=== PATIENT | male | born 1970 | race Caucasian/White ===

== ENCOUNTER 2017-01-10 19:17 | Emergency (ER) | payer OTHER ==
[~2017-01-10] VITALS: Ht 182.8 cm; Wt 122.5 kg
[~2017-01-10 19:17] MED LIST: ATARAX,VISTARIL50 MG PO; ATIVAN1 MG PO; ATOXIMETIN-B1 CAP PO; BACTRIM DS 8001 TAB PO; CITALOPRAM40 MG PO; CLINDAMYCIN HC300 MG PO; CYCLOBENZAPRINE5 M3 PO; DILANTIN100 MG PO; KEFLEX500 M1 PO; KENALOG 0.1%80 GM PO; KEPPRA1000 MG PO; LAMICTAL200 MG PO; LAMICTAL25 MG PO; LEVOFLOXACIN500 MG PO; LYRICA25 MG PO; MOTRIN800 MG PO; Motrin,Rufen800 MG PO; NAPROSYN500 MG PO; NKHM; NORCO 325 MG-51 TAB PO; PHENYTOIN100 MG PO; PREDNICOT20 MG PO; TRAZODONE100 MG PO; ULTRAM50 MG PO; VICODIN 5/500 505 MG PO; ZIPRASIDONE HCL40 MG PO
[2017-01-10] MEDS ORDERED: ZIPRASIDONE HCL20 M1 PO (19:48)
[2017-01-10] MEDS ORDERED: CITALOPRAM HYDR20 MG PO (19:49)
[2017-01-10] MEDS ORDERED: LAMOTRIGINE200 MG PO (19:49)
[2017-01-10 20:30] LABS: BASO # 0.1 10*3/uL (0.0-0.1); BASO % 0.5 % (0.0-1.0); EOS # 0.2 10*3/uL (0.0-0.4); EOS % 2.1 % (1.0-4.0); HEMATOCRIT 47.4 % (42.0-52.0); HEMOGLOBIN 16.3 g/dl (14.0-18.0); IG # 0.1 10*3/uL (0.0-0.1); LYMPH # 2.7 10*3/uL (1.3-4.4); MEAN CELL VOLUME 89.6 fl (80.0-94.0); MEAN CORPUSCULAR HGB 30.8 pg (27.0-31.0); MEAN CORPUSCULAR HGB CONC 34.4 g/dl (33.0-37.0); MEAN PLATELET VOLUME 11.2 fl (9.6-12.3); MONO # 0.6 10*3/uL (0.1-1.0); MONO % 6.3 % (3.0-9.0); NEUT # 5.9 10*3/uL (2.3-7.9); NEUT % 62.6 % (47.0-73.0); PLATELET COUNT AUTOMATED 189 10*3/uL (130-400); RED BLOOD COUNT 5.29 10*6/uL (4.50-5.90); RED CELL DISTRI WIDTH 12.9 % (0-14.5); WHITE BLOOD COUNT 9.5 10*3/uL (4.8-10.8)
[2017-01-10 20:49] LABS: ALBUMIN 4.1 gm/dl (3.1-4.5); ALKALINE PHOSPHATASE 108 U/L (45-117); BILIRUBIN, TOTAL 0.3 mg/dl (0.2-1.0); BUN 13 mg/dl (7-24); CARBON DIOXIDE 23 mmol/L (21-32); CHLORIDE 104 mmol/L (98-107); EST GLOM FILT AFRICAN AMERICAN > 60 ml/min; GLUCOSE 98 mg/dL (65-99); MAGNESIUM 2.3 mg/dL (1.5-2.1); POTASSIUM 4.1 mmol/L (3.5-5.1); SGOT/AST 20 IU/L (3-35); SGPT/ALT 36 U/L (12-78); SODIUM 140 mmol/L (136-145); TOTAL PROTEIN 7.4 gm/dL (6.4-8.2)
[2017-01-10 21:04] LABS: TROPONIN I < 0.015 ng/ml (<0.045)
[2017-01-10] MEDS ORDERED: PRINIVIL10 MG PO (21:26)
[2017-01-10] MEDS ORDERED: HYDROCHLOROTH12.5 M2 PO (21:26)
[2017-01-10 21:29] VITALS: BP 146/84
== END 2017-01-10 21:29 | disposition home or self-care (01) ==
LOC: ED 19:17
PROVIDERS: Emergency Medicine Emergency Medical Services
DX: I10 Essential (primary) hypertension (principal); F17.200 Nicotine dependence, unspecified, uncomplicated; Z88.0 Allergy status to penicillin; F32.9 Major depressive disorder, single episode, unspecified

== ENCOUNTER → 2017-06-08 | Outpatient (CLI) | payer BC ==
[~2017-06-08] MED LIST changes: +CITALOPRAM HYDR20 MG PO; +HYDROCHLOROTH12.5 M2 PO; +LAMOTRIGINE200 MG PO; +PRINIVIL10 MG PO; +ZIPRASIDONE HCL20 M1 PO
[2017-06-08 13:56] LABS: BASO # 0.1 10*3/uL (0.0-0.1); BASO % 0.7 % (0.0-1.0); EOS # 0.1 10*3/uL (0.0-0.4); EOS % 1.7 % (1.0-4.0); HEMOGLOBIN 15.5 g/dl (14.0-18.0); LYMPH # 1.9 10*3/uL (1.3-4.4); LYMPH % 22.6 % (27.0-41.0); MEAN CELL VOLUME 90.5 fl (80.0-94.0); MEAN CORPUSCULAR HGB 31.2 pg (27.0-31.0); MEAN CORPUSCULAR HGB CONC 34.4 g/dl (33.0-37.0); MEAN PLATELET VOLUME 11.4 fl (9.6-12.3); MONO # 0.5 10*3/uL (0.1-1.0); MONO % 5.8 % (3.0-9.0); NEUT # 5.7 10*3/uL (2.3-7.9); NEUT % 67.9 % (47.0-73.0); PLATELET COUNT AUTOMATED 197 10*3/uL (130-400); RED BLOOD COUNT 4.97 10*6/uL (4.50-5.90); RED CELL DISTRI WIDTH 12.3 % (0-14.5); WHITE BLOOD COUNT 8.4 10*3/uL (4.8-10.8)
[2017-06-08 14:18] LABS: ALKALINE PHOSPHATASE 78 U/L (45-117); BUN 12 mg/dl (7-24); CHLORIDE 105 mmol/L (98-107); CHOLESTEROL 166 mg/dL (<200); CREATININE 0.88 mg/dL (0.70-1.30); HDL CHOLESTEROL 49 mg/dl (40-60); LDL CHOLESTEROL 73 mg/dL (9-159); POTASSIUM 3.8 mmol/L (3.5-5.1); SGOT/AST 14 IU/L (3-35); SGPT/ALT 28 U/L (12-78); SODIUM 138 mmol/L (136-145); TOTAL PROTEIN 7.4 gm/dL (6.4-8.2); TRIGLYCERIDES 220 mg/dl (<150); VLDL CHOLESTEROL 44 mg/dL (6-40)
== END | disposition home or self-care (01) ==
LOC: LAB 13:26
PROVIDERS: Nurse Practitioner Primary Care
DX: E55.9 Vitamin D deficiency, unspecified (principal); I10 Essential (primary) hypertension; Z68.36 Body mass index [BMI] 36.0-36.9, adult

== ENCOUNTER → 2017-06-28 | Outpatient (CLI) | payer BC ==
--- NOTE | ~2017-06-28 | EKG ---
[place], [place] ELECTROCARDIOGRAM REPORT NAME: NAVEEN MELCHOR UNIT #: [id number] ROOM: DOCTOR: CHRISTA NAVARRETE,SHANON BIRTHDATE: [birth year] DOS: 06/28/2017 TIME: 1339 hours. IMPRESSION: 1. Sinus rhythm. 2. Anterior ST-T changes, probably normal early repolarization. 3. Normal QT interval. 4. No ischemic changes. SHANON GOODWIN MD CM:EKGRPT:ELECTROCARDIOGRAM REPORT [id number] SHANON GOODWIN MD
== END | disposition home or self-care (01) ==
LOC: CARD 13:34
DX: Z51.81 Encounter for therapeutic drug level monitoring (principal); Z79.899 Other long term (current) drug therapy

== ENCOUNTER 2019-04-21 01:50 | Emergency (ER) | payer BC ==
[~2019-04-21] VITALS: Ht 182.8 cm; Wt 136.1 kg
--- NOTE | ~2019-04-21 | EKG ---
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
[~2019-04-21 01:50] MED LIST changes: +CYCLOBENZAPRINE10 MG PO; +MEDROL DOSEPAK4 MG PO
[2019-04-21 03:17] VITALS: BP 0/0; BP 100/49; BP 105/51; BP 113/67; BP 114/56; BP 114/59; BP 66/41; BP 70/37; BP 77/42; BP 78/44; BP 81/38; BP 86/39; BP 87/38; BP 90/47; BP 90/49; BP 96/41; BP 99/49
[2019-04-21 04:13] LABS: VENOUS BLOOD GAS O2 SAT 79.7 % (40-85); VENOUS PH 6.501 (7.32-7.43)
== END 2019-04-21 04:37 | disposition short-term general hospital (02) ==
LOC: ED 01:50
PROVIDERS: Student in an Organized Health Care Education/Training Program
DX: I46.9 Cardiac arrest, cause unspecified (principal); G47.33 Obstructive sleep apnea (adult) (pediatric); G40.909 Epilepsy, unspecified, not intractable, without status epilepticus; F32.9 Major depressive disorder, single episode, unspecified; F41.9 Anxiety disorder, unspecified; Z88.0 Allergy status to penicillin; Z79.899 Other long term (current) drug therapy